=== PATIENT | male | born 1950 | race Caucasian/White ===

== ENCOUNTER 2017-08-01 05:35 | Inpatient (IN) | payer OTHER, MEDICARE ==
[~2017-08-01] VITALS: Ht 175.3 cm; Wt 103.0 kg
[~2017-08-01 05:35] MED LIST: ALLO300T2 PO; AMLO5TAB2 PO; DIPH25CA PO; FOLI800T PO; METO25TA3 PO; MULTTAB67 PO; PANT40TA3 PO; ROSU1TAB8 PO
[2017-08-01] MEDS ORDERED: METOPROLOL TARTRATE 25 MG TAB PO PRN (06:15)
[2017-08-01] MEDS ORDERED: LACTATED RINGER'S 1000 ML IV PRN (06:15)
[2017-08-01] MEDS ORDERED: SODIUM CHLORID 0.9% 500 ML IV PRN (06:15)
[2017-08-01] MEDS ORDERED: POVIDONE IODINE 5% (ANTISEPSIS KIT) 4 APPLICATIONS EACH NARE PRN (06:15)
[2017-08-01] MEDS ORDERED: CHLORHEXIDINE GLUCONATE 2 % 1 PACK (2 CLOTHS) TOPICAL PRN (06:15)
[2017-08-01] MEDS ORDERED: ACETAMINOPHEN 1000 MG/100 ML 100 ML IV ONE (06:54)
[2017-08-01] MEDS ORDERED: fentaNYL CITRATE 250 MCG/5 ML AMP ONE (06:54)
[2017-08-01] MEDS ORDERED: MORPHINE SULFATE 4 MG/ML INJ ONE (06:54)
[2017-08-01] MEDS ORDERED: LIDOCAINE 1%/EPINEPHrine 1:100,000 SOLN 30 ML VIAL ONE (06:57)
[2017-08-01] MEDS ORDERED: HEPARIN SODIUM - SQ 10,000 UNITS/ML VIAL ONE (07:04)
[2017-08-01 07:33] LABS: PROTHROMBIN TIME - PATIENT 10.4 SEC (9.8-11.6)
[2017-08-01] MEDS: ceFAZolin 2 GM PREMIX 50 ML IV SCH ×2 (08:33→12:45)
--- NOTE | 2017-08-01 08:49 | EKG ---
Date Performed: 08/01/2017 Time Performed: 06:28:13 PTAGE: 66 years EKG: Sinus rhythm NORMAL ECG NO PREVIOUS TRACING DOCTOR: Magdiel Villeda Interpretating Date/Time 08/01/2017 08:46:19
[2017-08-01] MEDS ORDERED: ceFAZolin INJ 1,000 MG VIAL IV ONE (12:00)
[2017-08-01] MEDS ORDERED: VECURONIUM BROMIDE 20 MG VIAL IV ONE (12:00)
[2017-08-01] MEDS ORDERED: PHENYLEPH/NS 1000 MCG/10 ML SYR IV ONE (12:00)
[2017-08-01] MEDS ORDERED: GLYCOPYRROLATE 1 MG/5 ML SYRINGE IV PUSH ONE (12:00)
[2017-08-01] MEDS ORDERED: SODIUM CHLORID 0.9% 500 ML INJ 500 ML IV ONE ×2 (12:00→17:30)
[2017-08-01] MEDS ORDERED: NORMOSOL R INJ 2,000 ML IV ONE (12:00)
[2017-08-01] MEDS ORDERED: STERILE WATER FOR INJECTION 20 ML VIAL IV ONE (12:00)
[2017-08-01] MEDS ORDERED: PROPOFOL 200 MG/20 ML AMP IV ONE (12:00)
[2017-08-01] MEDS ORDERED: PHENYLEPHRINE HCL 10 MG/ML VIAL IV ONE (12:00)
[2017-08-01] MEDS ORDERED: ePHEDrine/NS 25 MG/5 ML SYRINGE IV ONE (12:00)
[2017-08-01] MEDS ORDERED: ONDANSETRON HCL 4 MG/2 ML VIAL IV ONE (12:00)
[2017-08-01] MEDS ORDERED: LIDOCAINE HCL 1% PF 5 ML SYRINGE OTHER ONE (12:00)
[2017-08-01] MEDS ORDERED: SODIUM CHLOR 0.9% (EXCEL) INJ 250 ML IV ONE (12:00)
[2017-08-01] MEDS ORDERED: DEXAMETHASONE SOD PHOS 4 MG/ML VIAL IV ONE (12:00)
[2017-08-01] MEDS ORDERED: NEOSTIGMINE 5 MG/5 ML SYRINGE IV PUSH ONE (12:00)
[2017-08-01] MEDS ORDERED: ROCURONIUM INJ 50 MG/5 ML SYRINGE IV PUSH ONE (12:00)
[2017-08-01] MEDS ORDERED: PHENYLEPHRINE HCL 10 MG/ML VIAL ONE (14:29)
[2017-08-01] MEDS ORDERED: KETOROLAC TROMETHAMINE 30 MG/ML (IVP) VIAL IV PUSH PRN (15:15)
[2017-08-01] MEDS ORDERED: ONDANSETRON HCL 4 MG/2 ML VIAL IV PUSH PRN (15:15)
[2017-08-01] MEDS ORDERED: SUGAMMADEX SODIUM 200 MG/2 ML VIAL IV PUSH ONE (15:40)
[2017-08-01] MEDS ORDERED: DO NOT ADM ANY ANTICOAGULANT DRUGS PRN (15:52)
[2017-08-01] MEDS: PANTOPRAZOLE SODIUM 40 MG VIAL IV PUSH SCH (16:00)
[2017-08-01] MEDS: SODIUM CHLOR 0.9% 1000 ML INJ 1,000 ML IV SCH (16:00)
--- NOTE | 2017-08-01 16:52 | RADRPT ---
EXAM DATE/TIME: 08/01/2017 17:28 [facility] COMPARISON: No previous studies available for comparison. INDICATIONS : Short of breath. MEDICAL HISTORY : None. SURGICAL HISTORY : None. ENCOUNTER: Initial ACUITY: 1 day PAIN SCORE: Non-responsive. LOCATION: Bilateral chest FINDINGS: Linear parenchymal opacities in the lung bases. Cardiomediastinal contours are within normal limits g iven portable technique. Bony thorax appears intact. CONCLUSION: 1. Bibasilar linear opacities consistent with atelectasis. Dylan Cordero MD on August 01, 2017 at 16:50 Board Certified Radiologist. This report was verified electronically.
[2017-08-01 16:53] LABS: CALCIUM 8.2 MG/DL (8.5-10.1); CREATININE 2.3 MG/DL (0.60-1.30)
[2017-08-01] MEDS ORDERED: ALBUMIN 5% INJ 500 ML IV ONE (17:00)
[2017-08-01] MEDS ORDERED: ALBUMIN 25% INJ 100 ML IV ONE ×2 (17:04→17:30)
[2017-08-01 17:18] LABS: AUTOMATED NEUTROPHIL # 13.9 TH/MM3 (1.8-7.7); BASOPHIL % 0.2 % (0.0-2.0); EOSINOPHIL % 0.1 % (0.0-4.0); HEMATOCRIT 31.5 % (39.0-51.0); LYMPH % 4.1 % (9.0-44.0); LYMPHOCYTE # 0.6 TH/MM3 (1.0-4.8); MEAN CELL VOLUME 98.4 FL (80.0-100.0); MEAN CORPUSCULAR HEMOGLOBIN 34.3 PG (27.0-34.0); MEAN CORPUSCULAR HGB CONC 34.9 % (32.0-36.0); MEAN PLATELET VOLUME 7.8 FL (7.0-11.0); MONO % 3.2 % (0.0-8.0); MONOCYTE # 0.5 TH/MM3 (0-0.9); NEUT % 92.4 % (16.0-70.0); PLATELET COUNT 199 TH/MM3 (150-450)
[2017-08-01] MEDS ORDERED: MORPHINE SULFATE 4 MG/ML INJ IV PUSH PRN (17:45)
[2017-08-01] MEDS ORDERED: *morphine SULFATE 4 MG/ML PERIprocedure ONLY ONE (19:03)
[2017-08-01 20:00] VITALS: BP 122/59; PULSE 81; RESP 15; TEMP 98.3; O2SAT 95
[2017-08-01] MEDS: DOCUSATE SODIUM 100 MG CAP PO SCH ×2 (20:52→21:00)
[2017-08-02] VITALS (7 sets, daily range): BP systolic 110–133; BP diastolic 59–68; PULSE 88–95; RESP 16–20; TEMP 97.3–98.7; O2SAT 91–94
[2017-08-02] MEDS: oxyCODONE/ACETAMINOPHEN 5 MG/325 MG TAB PO PRN ×4 (04:47→22:51)
[2017-08-02 05:49] LABS: HEMATOCRIT 25.2 % (39.0-51.0); HEMOGLOBIN 8.8 GM/DL (13.0-17.0); MEAN CORPUSCULAR HEMOGLOBIN 34.2 PG (27.0-34.0); MEAN CORPUSCULAR HGB CONC 34.9 % (32.0-36.0); MEAN PLATELET VOLUME 8.1 FL (7.0-11.0); PLATELET COUNT 141 TH/MM3 (150-450); RED BLOOD COUNT 2.58 MIL/MM3 (4.50-5.90); RED CELL DISTRIBUTION WIDTH 13.8 % (11.6-17.2); WHITE BLOOD COUNT 9.6 TH/MM3 (4.0-11.0)
[2017-08-02 06:22] LABS: CALCIUM 8.4 MG/DL (8.5-10.1); CREATININE 3.29 MG/DL (0.60-1.30)
--- NOTE | 2017-08-02 09:15 | RADRPT ---
EXAM DATE/TIME: 08/02/2017 08:25 [facility] COMPARISON: No previous studies available for comparison. INDICATIONS : Post prostatectomy, oliguria, renal failure. ORAL CONTRAST: No oral contrast ingested. RADIATION DOSE: 16.54 CTDIvol (mGy) MEDICAL HISTORY : Hypertension. Coronary artery disease. SURGICAL HISTORY : Prostatectomy. ENCOUNTER: Initial ACUITY: 1 day PAIN SCALE: 2/10 LOCATION: Bilateral lower quadrant TECHNIQUE: Volumetric scanning of the abdomen and pelvis was performed. Using automated exposure control and ad justment of the mA and/or kV according to patient size, radiation dose was kept as low as reasonably achievable to obtain optimal diagnostic quality images. DICOM format image data is available electro nically for review and comparison. FINDINGS: LOWER LUNGS: There is atelectasis within both lower lobes. Coronary artery calcification is present. LIVER: Abnormal decreased density without lesion. There is no dilation of the biliary tree. No calcified g allstones. SPLEEN: Normal size without lesion. PANCREAS: No acute abnormality. KIDNEYS: There is mild bilateral hydronephrosis and proximal hydroureter. The ureters are medially deviated in the upper pelvis. Distally the ureters are normal in size. There are [address] non[address] right renal st ones measuring between 2 and 3 mm each. No ureteral stones are seen. ADRENAL GLANDS: Within normal limits. VASCULAR: There is no aortic aneurysm. There is moderate atherosclerotic disease. BOWEL/MESENTERY: A small hiatal hernia is present. Small bowel and colon demonstrate no acute finding. Sigmoid diverti culosis is present. There is a small amount of free intraperitoneal air. A surgical drain is present in the inferior pelvis and exits the left lateral abdominal wall. ABDOMINAL WALL: There is severe subcutaneous emphysema throughout the abdominal wall bilaterally in the abdomen and p sera. The subcutaneous emphysema extends into the proximal thighs. RETROPERITONEUM: There is retroperitoneal fluid in the inferior abdomen and pelvis. There is extraperitoneal air withi n the abdomen and pelvis. BLADDER: Completely decompressed with Cline catheter present. REPRODUCTIVE: Prostate gland is not visualized. INGUINAL: There is no lymphadenopathy or hernia. MUSCULOSKELETAL: Left hip arthroplasty is present and results in beam hardening artifact. There are degenerative de es of the lumbar spine. CONCLUSION: 1. There is mild bilateral hydronephrosis and proximal hydroureter from uncertain etiology. In the up per pelvis the ureters are slightly medially deviated and there is a small amount of retroperitoneal fluid. More distally the ureters are normal in size and bladder is completely decompressed. This sugg ests some degree of obstructing process in the retroperitoneal aspect of the upper pelvis. 2. There is a severe subcutaneous emphysema throughout the abdominal wall and within the pelvis and p roximal thighs. This is related to the recent surgery. There is also a small amount of intraperitonea l free air and extraperitoneal air in the abdomen and pelvis. 3. Nonacute findings include small hiatal hernia, hepatic steatosis, nonobstructing right renal stone s, and moderate atherosclerotic disease. There is atelectasis at both lung bases. Teodoro Red MD on August 02, 2017 at 9:03 Board Certified Radiologist. This report was verified electronically.
[2017-08-02] MEDS: DOCUSATE SODIUM 100 MG CAP PO SCH ×2 (09:59→20:26)
[2017-08-02] MEDS ORDERED: FUROSEMIDE 20 MG/2 ML VIAL IV PUSH ONE (13:30)
--- NOTE | 2017-08-02 13:38 | HHI.PR ---
Subjective Patient symptoms today 66 y.o M POD #1 post Robotic radical prostatectomy yesterday. In general pt is doing well. Has expected abd pain post/op, managed well with pain meds. He ambulated without difficulties. His urine output significantly decreased after surgery he had only 50cc of urine in bag this morning.. Cr is a little elavated compare to his base line of 2-2.5, its 3.29 today. His white count is normal. Hgb is 8.8, expected to be after surgery. VS are stable. Cline is in place. LILA is draining well, 90cc is in a bag. CT scan was done, bladder is decompressed , mild hydro noted Objective Vital Signs Vital Signs Date Time Temp Pulse Resp B/P (MAP) Pulse Ox O2 Delivery O2 Flow Rate FiO2 08/02/17 12:00 97.5 89 18 133/67 (89) 92 08/02/17 09:30 92 21 08/02/17 08:00 97.8 91 18 112/61 (78) 92 08/02/17 08:00 16 08/02/17 04:00 98.7 90 18 116/62 (80) 91 08/02/17 00:00 97.7 88 16 110/59 (76) 94 08/01/17 20:00 98.3 81 15 122/59 (80) 95 08/01/17 19:30 98.6 77 17 107/60 (76) 96 Nasal Cannula 2 08/01/17 19:00 77 17 108/60 (76) 96 Nasal Cannula 2 08/01/17 18:45 75 17 136/76 (96) 96 Nasal Cannula 2 08/01/17 18:30 73 19 135/71 (92) 99 Nasal Cannula 2 08/01/17 18:15 73 19 129/64 (85) 99 Nasal Cannula 2 08/01/17 18:00 79 19 115/55 (75) 99 Nasal Cannula 2 08/01/17 17:45 79 19 97/54 (68) 99 Nasal Cannula 2 08/01/17 17:30 71 19 96/50 (65) 99 Nasal Cannula 2 08/01/17 17:15 71 19 82/46 (58) 96 08/01/17 17:00 71 19 88/52 (64) 99 08/01/17 16:45 68 17 84/53 (63) 99 08/01/17 16:30 73 18 81/53 (62) 99 08/01/17 16:15 71 20 80/52 (61) 97 08/01/17 16:00 80 17 82/52 (62) 95 08/01/17 15:46 98.0 80 16 129/60 (83) 95 Simple Mask 6 Intake & Output 08/02/17 08/02/17 07:00 19:00 Intake Total 0 ml Output Total 315 ml 40 ml Balance -315 ml -40 ml Intake Oral 0 ml Output Urine Total 30 ml Drainage Total 285 ml 40 ml Bladder Scan Volume Amount 0 ml 0 ml 0 ml # Voids 0 # Bowel Movements 0 Result Diagram: 08/02/17 0430 08/02/17 0430 Imaging Last 24 hours Impressions Abdomen/Pelvis CT 08/02/17 0000 Signed Impressions: Service Date/Time: July 08:25 - CONCLUSION: 1. There is mild bilateral hydronephrosis and proximal hydroureter from uncertain etiology. In the upper pelvis the ureters are slightly medially deviated and there is a small amount of retroperitoneal fluid. More distally the ureters are normal in size and bladder is completely decompressed. This suggests some degree of obstructing process in the retroperitoneal aspect of the upper pelvis. 2. There is a severe subcutaneous emphysema throughout the abdominal wall and within the pelvis and proximal thighs. This is related to the recent surgery. There is also a small amount of intraperitoneal free air and extraperitoneal air in the abdomen and pelvis. 3. Nonacute findings include small hiatal hernia, hepatic steatosis, nonobstructing right renal stones, and moderate atherosclerotic disease. There is atelectasis at both lung bases. Teodoro Red MD Objective Remarks NAD Abd is distended as expected post op. mild tenderness RRR Clear breath sounds Cline is in place, 70cc is in the bag Medications and IVs Current Medications Medications (Trade) Dose Ordered Sig/Moe Route Start Time Stop Time Status Last Admin Lactated Ringer's 1,000 ml @ 30 mls/hr Q24H PRN IV 08/01/17 06:15 08/04/17 06:14 Sodium Chloride 500 ml @ 30 mls/hr [id number] PRN IV 08/01/17 06:15 08/04/17 06:14 (Lopressor) 25 mg BUCKLE ATTACHING MACHINE OPERATOR PRN PO 08/01/17 06:15 08/04/17 06:14 (Betadine 5% Antisepsis Kit) 1 applic BUCKLE ATTACHING MACHINE OPERATOR PRN EACH NARE 08/01/17 06:15 08/04/17 06:14 (Chlorhexidine 2% Cloth) 3 pack BUCKLE ATTACHING MACHINE OPERATOR PRN TOPICAL 08/01/17 06:15 08/04/17 06:14 Cefazolin Sodium/ Dextrose 50 ml @ 150 mls/hr BUCKLE ATTACHING MACHINE OPERATOR IV 08/01/17 06:15 08/04/17 06:14 08/01/17 12:45 (Colace) 100 mg BID PO 08/01/17 21:00 08/02/17 09:59 (Percocet 5-325 Mg) 2 tab Q4H PRN PO 08/01/17 15:15 08/02/17 10:32 (Zofran Inj) 4 mg Q6HR PRN IV PUSH 08/01/17 15:15 08/01/17 20:52 (Protonix Inj) 40 mg Q24H IV PUSH 08/01/17 16:00 08/01/17 16:00 Sodium Chloride 1,000 ml @ 150 mls/hr Q6H40M IV 08/01/17 15:15 08/02/17 00:00 ([facility]) ALL NURSING DEPARTME... UNSCH PRN .XX 08/01/17 15:52 08/02/17 15:51 (Morphine Inj) 4 mg Q3H PRN IV PUSH 08/01/17 17:45 Assessment and Plan Assessment and Plan Continue observation Monitor I&Os VS and Labs as scheduled Dressing can be changed around LILA drain Lasix 20mg IV Keep NPO until further notice Discharge Planning pending Len Blood August 02, 2017 13:38
[2017-08-02] MEDS: SODIUM CHLOR 0.9% 1000 ML INJ 1,000 ML IV SCH ×3 (14:27→20:25)
[2017-08-02] MEDS: PANTOPRAZOLE SODIUM 40 MG VIAL IV PUSH SCH (14:30)
[2017-08-03] VITALS: BP 121/69; PULSE 97; RESP 18; TEMP 97.2; O2SAT 94
[2017-08-03] MEDS: SODIUM CHLOR 0.9% 1000 ML INJ 1,000 ML IV SCH ×3 (02:56→19:06)
[2017-08-03 07:26] LABS: AUTOMATED NEUTROPHIL # 6.9 TH/MM3 (1.8-7.7); BASOPHIL % 0.3 % (0.0-2.0); EOSINOPHIL # 0.1 TH/MM3 (0-0.4); EOSINOPHIL % 1.2 % (0.0-4.0); HEMATOCRIT 24.8 % (39.0-51.0); HEMOGLOBIN 8.5 GM/DL (13.0-17.0); LYMPH % 7.3 % (9.0-44.0); LYMPHOCYTE # 0.6 TH/MM3 (1.0-4.8); MEAN CELL VOLUME 99.7 FL (80.0-100.0); MEAN CORPUSCULAR HEMOGLOBIN 34.4 PG (27.0-34.0); MEAN CORPUSCULAR HGB CONC 34.5 % (32.0-36.0); MEAN PLATELET VOLUME 7.8 FL (7.0-11.0); MONO % 6.7 % (0.0-8.0); MONOCYTE # 0.5 TH/MM3 (0-0.9); NEUT % 84.5 % (16.0-70.0); PLATELET COUNT 122 TH/MM3 (150-450); RED BLOOD COUNT 2.49 MIL/MM3 (4.50-5.90); RED CELL DISTRIBUTION WIDTH 14.2 % (11.6-17.2); WHITE BLOOD COUNT 8.2 TH/MM3 (4.0-11.0)
[2017-08-03] MEDS: oxyCODONE/ACETAMINOPHEN 5 MG/325 MG TAB PO PRN ×3 (07:42→17:38)
[2017-08-03 07:56] LABS: BICARBONATE 19.4 MEQ/L (21.0-32.0); CALCIUM 8.3 MG/DL (8.5-10.1); CREATININE 4.21 MG/DL (0.60-1.30)
[2017-08-03 08:00] VITALS: BP 113/58; PULSE 98; RESP 24; TEMP 97.8; O2SAT 92
[2017-08-03] MEDS: DOCUSATE SODIUM 100 MG CAP PO SCH ×2 (09:43→21:38)
--- NOTE | 2017-08-03 10:21 | RADRPT ---
EXAM DATE/TIME: 08/03/2017 09:13 [facility] COMPARISON: CT ABDOMEN & PELVIS W/O CONTRAST, August 02, 2017, 8:25. POC ULTRASOUND VASCULAR ACCESS TEAM, August 02 018, 9:16. INDICATIONS : Hydronephrosis. MEDICAL HISTORY : Hypertension. Gastroesophageal reflux disease. Anemia. Prostate Cancer. Gout. Coronary artery disea se. SURGICAL HISTORY : Prostatectomy. Left hip replacement. ENCOUNTER: Initial ACUITY: 1 day PAIN SCORE: 4/10 LOCATION: Bilateral flank MEASUREMENTS: RIGHT KIDNEY: Not visualized. LEFT KIDNEY: Not visualized. FINDINGS: RIGHT KIDNEY: Not adequately visualized. LEFT KIDNEY: Not adequately visualized. BLADDER: Not adequately visualized. CONCLUSION: The extensive air within the abdominal wall causes artifact which does not allow adequate visualizati on of the kidneys or urinary bladder. Suggest performing a noncontrast abdomen and pelvis CT for furt her evaluation, if needed. Teodoro Red MD on August 03, 2017 at 10:16 Board Certified Radiologist. This report was verified electronically.
[2017-08-03 12:00] VITALS: BP 119/56; PULSE 100; RESP 22; TEMP 97.7; O2SAT 93
--- NOTE | 2017-08-03 14:34 | HHI.PR ---
Subjective Patient symptoms today 08/02/17 66 y.o M POD #1 post Robotic radical prostatectomy yesterday. In general pt is doing well. Has expected abd pain post/op, managed well with pain meds. He ambulated without difficulties. His urine output significantly decreased after surgery he had only 50cc of urine in bag this morning.. Cr is a little elavated compare to his base line of 2-2.5, its 3.29 today. His white count is normal. Hgb is 8.8, expected to be after surgery. VS are stable. Cline is in place. LILA is draining well, 90cc is in a bag. CT scan was done, bladder is decompressed, mild hydro noted 08/03/17 POD #2 post robotic radical prostatectomy. Continue doing well in general tolerates clear diet well, no f/c/n/v, Ambulates without difficulties, + belching, no flatus or BM yet. Cr is still elevated, 4.2 this AM, possibly due to Lasix. H/H is stable. Makes more urine. LILA has high output c/w leak at the anastomosis. Renal/bladder US was not helpful due to still having post/op gas in the abdomen. Pt states that post/op pain is improving Objective Vital Signs Vital Signs Date Time Temp Pulse Resp B/P (MAP) Pulse Ox O2 Delivery O2 Flow Rate FiO2 08/03/17 12:00 97.7 100 22 119/56 (77) 93 08/03/17 08:00 97.8 98 24 113/58 (76) 92 08/03/17 00:00 97.2 97 18 121/69 (86) 94 08/02/17 20:00 97.3 95 19 121/68 (85) 94 08/02/17 16:00 98.0 93 20 129/68 (88) 92 08/02/17 15:30 16 Intake & Output 08/03/17 08/03/17 07:00 19:00 Intake Total 475 ml Output Total 1680 ml 450 ml Balance -1205 ml -450 ml Intake Oral 475 ml Output Urine Total 530 ml Drainage Total 1150 ml 450 ml Result Diagram: 08/03/17 0656 08/03/17 0656 Imaging Last 24 hours Impressions Renal Ultrasound 08/03/17 0000 Signed Impressions: Service Date/Time: Thursday, August 03, 2017 09:13 - CONCLUSION: The extensive air within the abdominal wall causes artifact which does not allow adequate visualization of the kidneys or urinary bladder. Suggest performing a noncontrast abdomen and pelvis CT for further evaluation, if needed. Teodoro Red MD Objective Remarks NAD Abd is distended as expected post op. mild tenderness RRR Clear breath sounds Cline is in place, 75cc in LILA Medications and IVs Current Medications Medications (Trade) Dose Ordered Sig/Moe Route Start Time Stop Time Status Last Admin Lactated Ringer's 1,000 ml @ 30 mls/hr Q24H PRN IV 08/01/17 06:15 08/04/17 06:14 Sodium Chloride 500 ml @ 30 mls/hr [id number] PRN IV 08/01/17 06:15 08/04/17 06:14 (Lopressor) 25 mg BIZTALK CONSULTANT PRN PO 08/01/17 06:15 08/04/17 06:14 (Betadine 5% Antisepsis Kit) 1 applic BIZTALK CONSULTANT PRN EACH NARE 08/01/17 06:15 08/04/17 06:14 (Chlorhexidine 2% Cloth) 3 pack BIZTALK CONSULTANT PRN TOPICAL 08/01/17 06:15 08/04/17 06:14 Cefazolin Sodium/ Dextrose 50 ml @ 150 mls/hr BIZTALK CONSULTANT IV 08/01/17 06:15 08/04/17 06:14 08/01/17 12:45 (Colace) 100 mg BID PO 08/01/17 21:00 08/03/17 09:43 (Percocet 5-325 Mg) 2 tab Q4H PRN PO 08/01/17 15:15 08/03/17 13:20 (Zofran Inj) 4 mg Q6HR PRN IV PUSH 08/01/17 15:15 08/01/17 20:52 (Protonix Inj) 40 mg Q24H IV PUSH 08/01/17 16:00 08/02/17 14:30 Sodium Chloride 1,000 ml @ 150 mls/hr Q6H40M IV 08/01/17 15:15 08/03/17 02:56 (Morphine Inj) 4 mg Q3H PRN IV PUSH 08/01/17 17:45 Assessment and Plan Assessment and Plan Continue observation Decrease IV fluids rate to 100ml/hr Monitor I&Os and LILA output VS and Labs as scheduled Dressing can be changed around LILA drain prn Follow up on BMP this afternoon Advance diet to regular Discharge Planning pending Len Blood August 03, 2017 14:34
[2017-08-03 14:45] LABS: BICARBONATE 21.6 MEQ/L (21.0-32.0); CALCIUM 8.7 MG/DL (8.5-10.1); CREATININE 4.22 MG/DL (0.60-1.30)
[2017-08-03 16:00] VITALS: BP_SYST 121; BP_SYST 139; BP_DIAS 54; BP_DIAS 66; PULSE 101; PULSE 104; RESP 20; RESP 22; TEMP 98.2; TEMP 98.9; O2SAT 92; O2SAT 97
[2017-08-03] MEDS: PANTOPRAZOLE SODIUM 40 MG VIAL IV PUSH SCH (17:38)
[2017-08-03 20:00] VITALS: BP 128/68; PULSE 108; RESP 20; TEMP 98.2; O2SAT 94
[2017-08-04] VITALS: BP 134/70; PULSE 99; RESP 18; TEMP 98.4; O2SAT 93
[2017-08-04] MEDS: oxyCODONE/ACETAMINOPHEN 5 MG/325 MG TAB PO PRN ×2 (01:24→09:03)
[2017-08-04] MEDS: SODIUM CHLOR 0.9% 1000 ML INJ 1,000 ML IV SCH (01:24)
[2017-08-04 06:41] LABS: BICARBONATE 17.8 MEQ/L (21.0-32.0); CALCIUM 8.5 MG/DL (8.5-10.1); CREATININE 3.22 MG/DL (0.60-1.30)
[2017-08-04 08:00] VITALS: BP 126/65; PULSE 94; RESP 20; TEMP 97.7; O2SAT 94
[2017-08-04] MEDS: DOCUSATE SODIUM 100 MG CAP PO SCH (09:03)
[2017-08-04] MEDS ORDERED: OXYC1TAB63 PO (10:28)
[2017-08-04] MEDS ORDERED: DOCU1CAP39 PO (10:28)
[2017-08-04] MEDS ORDERED: CIPR-9 PO (10:28)
--- NOTE | 2017-08-30 10:51 | HHI.DS ---
Discharge Summary Admission Date August 01, 2017 at 15:21 Discharge Date: August 04, 2017 Admitting Diagnosis Prostate Cancer Procedures Robotic Radical Prostatectomy Hospital Course 66 yo male h/o [place] 6 CaP with abnormal Prostate MRI was admitted following a complex Robotic Prostatectomy. His hospital course was complicated by ARF with Creatinine rising to 4 form baseline of 2 as well as anuria for the first 24 hours. However, his catheter was adjusted and after getting well hydrated, he began to produce urine. He did develop a urine leak and the LILA drain was left in place. He was tolerating a regular diet, passing flatus and ambulating well from the beginning. His Creatinine eventually went back to his baseline and he was discharged home on POD# 3 with both alvarez and drain. He will f/u in 2 weeks with cystogram. Pt Condition on Discharge: Good Discharge Disposition: Discharge Home Discharge Instructions DIET: Follow Instructions for: As Tolerated, No Restrictions Activities you can perform: Full Weight Bearing, Shower Only-No Bath Additional Activity Instructio: No heavylifting greater than 15 lbs x 4 weeks New Medications: Ciprofloxacin (Cipro) 500 Mg Tab 500 MG PO BID for Infection for 7 Days, #14 TAB 0 Refills Docusate Sodium (Dok) 100 Mg Cap 100 MG PO BID for Constipation for 14 Days, #28 CAP Oxycodone HCl/Acetaminophen (Oxycodone-Acetaminophen 5-325) 5 Mg-325 Mg Tablet 2 TAB PO Q4H PRN for PAIN SCALE 5 TO 10 for 7 Days, #84 TAB Continued Medications: Allopurinol (Allopurinol) 300 Mg Tab 300 MG PO HS for Gout, #30 TAB 0 Refills Amlodipine (Amlodipine) 5 Mg Tab 5 MG PO HS for Blood Pressure Management, #30 TAB 0 Refills Diphenhydramine (Diphenhydramine) 25 Mg Cap 25 MG PO HS, CAP 0 Refills Folic Acid (Folic Acid) 0.8 Mg Tab 1600 MCG PO DAILY for Nutritional Supplement, TAB 0 Refills Metoprolol Tartrate (Metoprolol Tartrate) 25 Mg Tab 25 MG PO DAILY, #30 TAB 0 Refills Multiple Vitamin (Multiple Vitamin) 1 Tab 1 TAB PO DAILY for Nutritional Supplement, TAB 0 Refills Pantoprazole (Pantoprazole) 40 Mg Tab 40 MG PO DAILY for Reflux, #30 TAB 0 Refills Rosuvastatin (Rosuvastatin) 20 Mg Tab 20 MG PO HS for Cholesterol Management, #30 TAB 0 Refills Ash Barroso MD August 30, 2017 10:51
--- NOTE | 2017-08-30 11:43 | MP ---
cc: Ash Barroso MD, Samuel M MD Latif,Simeon LOVETT DATE OF OPERATION: 08/01/2017 PREOPERATIVE DIAGNOSES: 1. [place] 6 adenocarcinoma of the prostate. 2. History of anemia. 3. Chronic kidney disease. POSTOPERATIVE DIAGNOSIS: 1. [place] 6 adenocarcinoma of the prostate. 2. History of anemia. 3. Chronic kidney disease. PROCEDURE PERFORMED: Robotic-assisted laparoscopic radical prostatectomy. SURGEON: Ash Barroso MD CONSTRUCTION MATERIALS TESTER: Juan Conroy MD ANESTHESIA: General. COMPLICATIONS: None. PREOPERATIVE ANTIBIOTICS: Ancef 2 grams IV. DRAINS: 1. A 20-Grenadian Cline catheter to gravity drainage. 2. A 10-Grenadian LILA drain and bulb suction. BLOOD LOSS: 200 mL. SPECIMENS: Prostate and seminal vesicles for permanent. DISPOSITION: Stable. INDICATIONS: The patient is a 66-year-old male with a history of [place] 6 prostate cancer who was on active surveillance. However, recently his PSA jumped up to 25. Repeat PSA came back to 24.4. An MRI of the prostate was performed which showed a significant lesion on the right side of his prostate, which came back showed a suspicious lesion in the transitional zone involving the base, mid gland, and the apex measuring 2 cm in size. Due to these findings, he elected to proceed with treatment. Treatment options were discussed, which included external beam radiation therapy versus radical prostatectomy open versus laparoscopic. Advantages, disadvantages and side effects, potential complications of each were discussed including potential for positive margin, urine leak, erectile dysfunction, recurrence of cancer, anesthetic risks among others. He elected to proceed with robotic radical prostatectomy. After risks, benefits, and alternatives were explained to the patient, the patient elected to proceed and informed consent was obtained. DETAILS OF PROCEDURE: The patient was properly identified and brought back to the operating room and placed supine on the operating table. Appropriate timeout was performed under the direction of anesthesiology. The patient was intubated and induced under general anesthetic. Preoperative antibiotics in the form of Ancef 2 grams IV were given within one hour of the start of the procedure. The patient was then placed in a dorsal lithotomy position in steep Trendelenburg. All pressure points were padded. He was then prepped and draped in normal sterile surgical fashion. A 16-Grenadian Cline catheter was placed on the field in a sterile fashion. At this time, a stab incision was made just lateral and superior on the right side of the umbilicus. Veress needle was then used to gain insufflation. I then extended the incision approximately 2 cm. A 12 mm camera port was then placed into the abdominal cavity. The abdominal cavity was inspected. There was no evidence of intra-abdominal injury or bleeding. At this time, the remaining ports were placed under direct visualization including a 5 mm and 12 mm fire assistant port on the patient's right-hand side, as well as an 8 mm fire assistant port which was a handbreadth from the camera port. Two other 8 mm robotic ports were then placed on the patient's left hand side, each a handbreadth apart. At this time, the robot was then brought into position. Some adhesions were taken down on the patient's left side from the sigmoid colon. At this point, the bladder was then taken down in standard fashion to enter the retropubic space. The patient had a significant amount of anterior fat on the prostate along the pubic bone. This was all removed. Once the periprostatic fat was remove, this did expose the endopelvic fascia on each side. The endopelvic fascia was then bluntly entered on each side and dissected out towards the apex of the prostate. The patient did have a very narrow pelvis, as well as a hump of extra pubic bone which made visualization and getting down to his pelvis very difficult. However, once I divided the endopelvic fascia on each side, I did develop a plane around the DVC. The superficial dorsal vein was taken with electrocautery. The puboprostatic ligaments were then divided as well. This helped mobilize the prostate. At this point, I used V-Loc as my DVC stitch. The catheter was checked and the catheter was free from the stitch. This was then used as a suspension stitch and passed through the pubic bone. At this point, the anterior bladder neck was then dissected out. This was carefully done. There was no evidence of median lobe. Both ureter orifices were identified throughout the case. The bladder neck appeared to be nice and small. I then entered the posterior [place] where the seminal vesicles and vas deferens were encountered. Each vas was then divided and the posterior plane was developed. The seminal vesicles were then retracted anteriorly towards the pubic symphysis. I then carefully dissected out the pedicles on each side. Since the patient already had significant erectile dysfunction, the pedicles were taken with both the Hem-o-domenica, clips as well as the robotic vessel sealer all the way up to the apex. However, due to the patient's narrow pelvis and pubic bone, the posterior dissection up to the apex was quite difficult. Therefore, I had to attempt to get the apex anteriorly and going retrograde and antegrade. This was significantly difficult, but the prostate eventually was removed. The urethra was divided with a cold cut scissors and the rectourethralis muscle was then divided as well. Once the prostate was freed, it was then placed in the right pericolic gutter for later removal. The rectum was then tested. There was no obvious leak or rectal injury. At this point, the pelvis was then irrigated out. Three grams of Bisi were then placed for hemostatic purposes. At this point, the urethrovesical anastomosis was then performed. There was a very tenuous anastomosis due to the patient's pelvic anatomy. A double-armed 2-0 chromic was used for a running anastomosis; however, on the left side of the anastomosis, there was a slight gap as there likely will be a leak on this side. However, once the bladder and urethra was reapproximated, a new 20-Grenadian catheter was then placed and the balloon was secured. I was able to directly see the catheter go into the bladder itself. At this point, the double-armed chromic was then tied together. The prostate was then placed in an Endo Catch bag and removed. A LILA drain was then placed through the third arm secured with a 2-0 nylon. All ports were removed under direct visualization. Skin incisions were then closed with 4-0 Monocryl. This concluded the procedure. The patient was extubated and sent to recovery room in stable condition. He will be transferred to the floor for postoperative care. MD JOEY Beasley/WESLEY , 10:44 AM , 11:42 AM
== END 2017-08-04 13:17 | disposition home or self-care (01) | DRG 707 ==
LOC: HSDC 05:35 → EDSTATUS 07:30 → HSDI 15:21 → N07A 19:52
PROVIDERS: ADMIT Urology; ATTEND Urology
PROC: 8E0W0CZ Robotic Assisted Procedure of Trunk Region, Open Approach (ICD-10-PCS; 2017-08-01)
PROC: 0T9B70Z Drainage of Bladder with Drainage Device, Via Natural or Artificial Opening (ICD-10-PCS; 2017-08-01)
PROC: 0VT00ZZ Resection of Prostate, Open Approach (ICD-10-PCS; principal; 2017-08-01 07:46)
DX: C61 Malignant neoplasm of prostate (principal); N17.9 Acute kidney failure, unspecified; K21.9 Gastro-esophageal reflux disease without esophagitis; N18.9 Chronic kidney disease, unspecified; N52.9 Male erectile dysfunction, unspecified; I12.9 Hypertensive chronic kidney disease with stage 1 through stage 4 chronic kidney disease, or unspecified chronic kidney disease
CPT/HCPCS: 71045; 74176; 76775; 76937; 80048; 82550; 82552; 83605; 85025; 85027; 85610; 88307; 88309; 93005; 94150; C9113; J0131; J0690; J1100; J1644; J1940; J2270; J2370; J2405; J2710; J3010; J7030; J7040; J7050; P9045; P9047